=== PATIENT | male | born 1985 | race Caucasian/White ===

== ENCOUNTER 2022-03-27 09:41 | Emergency (ER) | payer SELFPAY ==
[2022-03-27] MEDS ORDERED: Ondansetron 4 MG/2 ML SDV IVPUSH ONE (11:10)
[2022-03-27] MEDS ORDERED: Sodium Chloride 0.9% 1,000 ML IV ONE (11:10)
[2022-03-27] MEDS ORDERED: Sodium Chloride 0.9% 10 ML Syringe FLUSH PRN (11:10)
[2022-03-27 12:15] LABS: ESTIMATED GFR 101 mL/min (>60)
[2022-03-27 12:27] LABS: ACETAMINOPHEN 0 ug/mL (10-30)
== END 2022-03-27 13:50 | disposition home or self-care (01) ==
LOC: JD.ED 09:41
DX: R11.2 Nausea with vomiting, unspecified (principal); F13.10 Sedative, hypnotic or anxiolytic abuse, uncomplicated; F15.10 Other stimulant abuse, uncomplicated; F11.10 Opioid abuse, uncomplicated; J44.9 Chronic obstructive pulmonary disease, unspecified; F17.210 Nicotine dependence, cigarettes, uncomplicated; Z88.0 Allergy status to penicillin
CPT/HCPCS: 36415; 74018; 80053; 80143; 80179; 80306; 80307; 81001; 83690; 83735; 85025; 86140; 96361; 96374; 99284; J2405; J3490; J7030